=== PATIENT | male | born 1970 | race African-American/Black ===

== ENCOUNTER 2016-05-21 01:17 | Observation (INO) | payer SELFPAY ==
[~2016-05-21] VITALS: Ht 172.7 cm; Wt 77.0 kg
[~2016-05-21 01:17] MED LIST: GLUCTAB PO; HYDR-3534 PO; POTA25TA5 PO; ZOFR4TAB3 SL
[2016-05-21 01:18] VITALS: BP 158/91; PULSE 96; RESP 16; TEMP 98; O2SAT 98
[2016-05-21 02:27] LABS: BASOPHIL % 0.2 % (0.0-2.0); EOSINOPHIL # 0.1 TH/MM3 (0-0.4); HEMATOCRIT 39.6 % (39.0-51.0); HEMO FLAGS DIFF FINAL; LYMPH % 48.9 % (9.0-44.0); LYMPHOCYTE # 3.5 TH/MM3 (1.0-4.8); MEAN CELL VOLUME 87.4 FL (80.0-100.0); MEAN CORPUSCULAR HEMOGLOBIN 30.5 PG (27.0-34.0); MEAN CORPUSCULAR HGB CONC 34.8 % (32.0-36.0); MONO % 7.7 % (0.0-8.0); NEUT % 42.2 % (16.0-70.0); PLATELET COUNT 164 TH/MM3 (150-450); RED BLOOD COUNT 4.53 MIL/MM3 (4.50-5.90); WHITE BLOOD COUNT 7.1 TH/MM3 (4.0-11.0)
[2016-05-21 02:57] LABS: ANION GAP 9 MEQ/L (5-15); BICARBONATE 26.9 MEQ/L (21.0-32.0); BLOOD UREA NITROGEN 14 MG/DL (7-18); CHLORIDE 101 MEQ/L (98-107); GLOMERULAR FILTRATION RATE 129 ML/MIN (>89); POTASSIUM 3.7 MEQ/L (3.5-5.1); SODIUM (NA) 137 MEQ/L (136-145)
[2016-05-21 03:01] LABS: CREATINE KINASE 135 U/L (39-308)
[2016-05-21 03:14] LABS: CKMB 1.2 NG/ML (0.5-3.6)
[2016-05-21] MEDS ORDERED: ACETAMINOPHEN/HYDROcodone 325 MG/5 MG TAB PO ONE (07:00)
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
[2016-05-21 07:30] VITALS: BP 129/89; PULSE 61; RESP 15; O2SAT 99
[2016-05-21] MEDS ORDERED: ALPRAZolam 0.25 MG TAB PO PRN (07:30)
[2016-05-21] MEDS ORDERED: PENICILLIN V POTASSIUM 500 MG TAB PO ONE (07:30)
[2016-05-21] MEDS ORDERED: SODIUM CHLORIDE 0.9% FLUSH 5 ML FLUSH IVF PRN (07:30)
[2016-05-21] MEDS ORDERED: TEMAZEPAM 15 MG CAP PO PRN (07:30)
[2016-05-21] MEDS ORDERED: ONDANSETRON HCL 4 MG/2 ML VIAL IV PRN (07:30)
[2016-05-21] MEDS ORDERED: MORPHINE SULFATE 4 MG/ML INJ IV PRN (07:30)
[2016-05-21] MEDS ORDERED: ACETAMINOPHEN/HYDROcodone 325 MG/7.5 MG TAB PO PRN (07:30)
[2016-05-21] MEDS ORDERED: NITROGLYCERIN 0.4 MG SL 25 TABS/BTL SL PRN (07:30)
--- NOTE | 2016-05-21 07:30 | RADRPT ---
EXAM DATE/TIME: 05/21/2016 06:57 [facility] COMPARISON: CHEST SINGLE AP, April 13, 2015, 4:37. INDICATIONS : Chest pains for three days. MEDICAL HISTORY : None. SURGICAL HISTORY : None. ENCOUNTER: Initial ACUITY: 3 days PAIN SCORE: 8/10 LOCATION: chest area under left shoulder. FINDINGS: A single view of the chest demonstrates the lungs to be symmetrically aerated without evidence of mas s, infiltrate or effusion. The cardiomediastinal contours are unremarkable. Osseous structures are intact. There is a subtle interface overlying the left lung apex which I believe is associated with t he third rib not pneumothorax CONCLUSION: Normal examination. Vick Gambino MD on May 21, 2016 at 7:28 Board Certified Radiologist. This report was verified electronically.
[2016-05-21 07:32] VITALS: O2SAT 98
[2016-05-21] MEDS ORDERED: PENI500T PO (07:40)
[2016-05-21] MEDS ORDERED: HYDR-3534 PO (07:40)
[2016-05-21] MEDS ORDERED: ASPIRIN 325 MG TAB PO SCH (09:00)
[2016-05-21] MEDS ORDERED: SODIUM CHLORIDE 0.9% FLUSH 5 ML FLUSH IVF SCH (09:00)
[2016-05-21 09:23] LABS: CREATINE KINASE 114 U/L (39-308)
[2016-05-21] MEDS ORDERED: LISI2.5T3 PO (09:33)
[2016-05-21] MEDS ORDERED: GLUCTAB PO (09:35)
[2016-05-21 09:43] LABS: CKMB 0.8 NG/ML (0.5-3.6)
--- NOTE | 2016-05-21 12:00 | HHI.HP ---
[facility] Primary Care Physician He Willard MD Chief Complaint Chest pain History of Present Illness This is a 45-year-old male that presents to the emergency department complaining of waking up about every day with a left-sided chest discomfort for the last 2 weeks. It'll last 1 or 2 minutes and then resolved. It does not occur with activity. He also states that when he wakes up his left arm feels numb and tingly. That will last for 5 seconds when he wakes up. Denies other types of discomfort. Denies weakness in extremities. Denies shortness of breath, nausea, or diaphoresis. Cannot recall prior cardiac workup. He states that he has been diabetic for some time. He also states that he has had hypertension in the past but is currently not taking medication for that. He denies knowledge of hyperlipidemia but cannot recall the last time it was checked. Patient also complaining of dental pain. He states that when he presses his tongue against an area in his palate at times pus will be expressed. Review of Systems General: Patient denies fevers, chills recent, and recent travel. HEENT: Patient denies headache, sore throat, difficulty swallowing. He believes he has a dental abscess. Cardiovascular: Has the chest discomfort as mentioned above. Denies sensation of heart beating rapidly or irregularly. No syncope. Respiratory: Denies shortness of breath or inspirational chest discomfort. Denies coughing wheezing or hemoptysis. GI: Patient denies nausea, vomiting, diarrhea, abdominal pain, bloody stools. Musculoskeletal: Patient denies joint pain or edema. Denies calf pain or edema. Neurovascular: Patient denies numbness, tingling, weakness in extremities. Denies headache. Endocrine: Denies polyuria and polydipsia. Hematologic: Denies easy bruising. Skin: Denies rash or itching. Past Family Social History Allergies: Coded Allergies: No Known Allergies (Verified , 05/21/16) Past Medical History Diabetes and hypertension. Does not know his lipid status. Denies knowledge of CAD. Past Surgical History Noncontributory. Reported Medications Metformin Family History Denies family history of CAD. Social History Nonsmoker. Denies alcohol or illicit drugs. Physical Exam Vital Signs Vital Signs Date Time Temp Pulse Resp B/P Pulse Ox O2 Delivery O2 Flow Rate FiO2 05/21/16 08:24 16 05/21/16 07:32 98 21 05/21/16 07:30 61 15 129/89 99 Room Air 05/21/16 06:14 78 16 98 Room Air 05/21/16 01:18 98.0 96 16 158/91 98 Room Air Laboratory Laboratory Tests Test 05/21/16 05/21/16 02:10 08:24 White Blood Count 7.1 Red Blood Count 4.53 Hemoglobin 13.8 Hematocrit 39.6 Mean Corpuscular Volume 87.4 Mean Corpuscular Hemoglobin 30.5 Mean Corpuscular Hemoglobin 34.8 Concent Red Cell Distribution Width 13.0 Platelet Count 164 Mean Platelet Volume 10.4 Neutrophils (%) (Auto) 42.2 Lymphocytes (%) (Auto) 48.9 Monocytes (%) (Auto) 7.7 Eosinophils (%) (Auto) 1.0 Basophils (%) (Auto) 0.2 Neutrophils # (Auto) 3.0 Lymphocytes # (Auto) 3.5 Monocytes # (Auto) 0.5 Eosinophils # (Auto) 0.1 Basophils # (Auto) 0.0 CBC Comment DIFF FINAL Differential Comment Sodium Level 137 Potassium Level 3.7 Chloride Level 101 Carbon Dioxide Level 26.9 Anion Gap 9 Blood Urea Nitrogen 14 Creatinine 0.79 Estimat Glomerular Filtration 129 Rate Random Glucose 239 Calcium Level 9.0 Total Creatine Kinase 135 114 Creatine Kinase MB 1.2 0.8 Troponin I LESS THAN 0.02 LESS THAN 0.02 Result Diagram: 05/21/1620905/21/16209 Imaging GENERAL: This is a well-nourished, well-developed patient, in no apparent distress. Patient speaks in clear complete sentences. Patient is pleasant. HEENT: Head is atraumatic and normocephalic. Neck is supple without lymphadenopathy and trachea is midline. No JVD or carotid bruits. CARDIOVASCULAR: Regular rate and rhythm without murmurs, gallops, or rubs. RESPIRATORY: Clear to auscultation. Breath sounds equal bilaterally. No wheezes , rales, or rhonchi. Chest wall is nontender. No use of accessory muscles. GASTROINTESTINAL: Abdomen is nontender, nondistended. Abdomen soft. No obvious pulsatile mass or bruit. No CVA tenderness. Strong femoral pulses bilaterally. Normal bowel sounds in all quadrants. MUSCULOSKELETAL: Patient is moving upper and lower extremities freely. No calf tenderness or edema, no Homans sign. Strong pulses in upper and lower extremities. NEUROLOGICAL: Patient is alert and oriented. Cranial nerves 2-12 are grossly intact. No focal deficits and speech is clear. Flat Lock Operator strength equal bilaterally. SKIN: No rash and turgor is normal. Course EKGs have sinus rhythm with nonspecific inferior T-wave changes. Assessment and Plan Assessment and Plan 1) Atypica l chest pain: Patient had first 2 sets of EKGs and cardiac enzymes and has ruled out. He was seen by Dr. Josef Diamond of cardiology and the chest pain center and will undergo a Lexiscan. If the stress test were to be nonischemic with then be discharged home with instructions follow-up with his primary care physician and with a dentist. 2) Diabetes: Continue current medications. Follow diabetic diet. He will be on sliding scale insulin coverage while in the chest pain center. He'll be placed on lisinopril and a statin. 3) hypertension: Will start lisinopril. Carlos Brown May 21, 2016 12:00
[2016-05-21] MEDS ORDERED: REGADENOSON INJ 0.4 MG/5 ML SYR ONE (12:20)
[2016-05-21 13:18] VITALS: BP 123/74; PULSE 95; RESP 19; TEMP 98; O2SAT 97
--- NOTE | 2016-05-21 14:31 | RADRPT ---
EXAM DATE/TIME: 05/21/2016 11:58 [facility] COMPARISON: No previous studies available for comparison. INDICATIONS: Left sided chest pain for 2 days. Angina. DOSE: 25.9 mCi Tc99m Myoview at stress. 8.1 mCi Tc99m Myoview at rest. 0.4 mg Lexiscan STRESS SYMPTOMS: Shortness of breath. EJECTION FRACTION: 67% MEDICAL HISTORY: Hypertension. Diabetes mellitus type 2. SURGICAL HISTORY: Abdomen surgery. ENCOUNTER: Initial ACUITY: 2 days PAIN SCALE: 6/10 LOCATION: Left chest TECHNIQUE: The patient underwent pharmacologic stress with infusion of prescribed dose. Continuous ECG tracing was monitored during stress. Gated SPECT imaging was performed after stress and conventional SPECT i maging was performed at rest. The examination was performed on a SPECT/CT scanner, both attenuation and non-corrected datasets were reviewed. FINDINGS: The gated Cine loop images demonstrate no focal wall motion abnormality. The left ventricular ejecti on fraction is calculated at 67%. The cardiac SPECT stress and rest images demonstrate no fixed or reversible defects to suggest infarc t or ischemic. CONCLUSION: No infarct, ischemia or focal wall motion abnormality. Left ventricular ejection fraction is calcula yann at 67%. RISK CATEGORY: Low risk (less than 1% annual mortality rate). Ladarius Garnett MD on May 21, 2016 at 14:02 Board Certified Radiologist. This report was verified electronically.
[2016-05-21] MEDS ORDERED: PRAV40TA2 PO (14:50)
[2016-05-21] MEDS ORDERED: LISI10TA3 PO (14:50)
--- NOTE | 2016-05-21 14:50 | HHI.DCPOC ---
Discharge Care Plan Diagnosis: (1) Chest pain (2) DM (diabetes mellitus) (3) Hypertension Goals to Promote Your Health * To prevent worsening of your condition and complications * To maintain your health at the optimal level Directions to Meet Your Goals Take your medications as prescribed Follow your dietary instruction Follow activity as directed Keep your appointments as scheduled Take your immunizations and boosters as scheduled If your symptoms worsen call your PCP, if no PCP go to Urgent Care Center or Emergency Room Smoking is Dangerous to Your Health. Avoid second hand smoke Call the 24-hour hour crisis hotline for domestic abuse at Carlos Brown May 21, 2016 14:50
[2016-05-21 15:10] VITALS: PULSE 102
--- NOTE | 2016-05-21 16:02 | EKG ---
Date Performed: 05/21/2016 Time Performed: 01:58:29 PTAGE: 45 years EKG: Sinus rhythm MINIMAL VOLTAGE CRITERIA FOR LVH, CONSIDER NORMAL VARIANT NONSPECIFIC T-WAVE ABNORMALITY BORDERLINE ECG PREVIOUS TRACING : 04/13/2015 18.02 Since previous tracing, no significant change noted DOCTOR: Josef Diamond Interpretating Date/Time 05/21/2016 16:00:38
--- NOTE | 2016-05-21 16:05 | EKG ---
Date Performed: 05/21/2016 Time Performed: 07:30:47 PTAGE: 45 years EKG: Sinus rhythm NONSPECIFIC T-WAVE ABNORMALITY BORDERLINE ECG PREVIOUS TRACING : 05/21/2016 01.58 Since previous tracing, no significant change noted DOCTOR: Josef Diamond Interpretating Date/Time 05/21/2016 16:03:42
--- NOTE | 2016-05-21 16:06 | TR ---
Date Performed: 05/21/2016 Time Performed: 12:29:01 DOCTOR: Josef Diamond DRUG LIST: CLINICAL HISTORY: CHEST PAIN REASON FOR TEST: CHEST PAIN REASON FOR ENDING: OBSERVATION: CONCLUSION: Lexiscan stress test was performed under standard four minute protocol. Radionuclid e was injected one minute prior to ending the test. No electrocardiographic abormalities were present to suggest ischemia. Nuclear imaging and interpretation are pending. COMMENTS:
== END 2016-05-21 18:00 | disposition home or self-care (01) ==
LOC: NEPC 01:17 → NEDA 07:21 → NEPHCDU 12:20 → HCIS 13:26 → NEPHCDU 13:29
PROVIDERS: ADMIT Internal Medicine Cardiovascular Disease; ATTEND Internal Medicine Cardiovascular Disease
DX: R07.89 Other chest pain (principal); E11.9 Type 2 diabetes mellitus without complications; I10 Essential (primary) hypertension; K02.9 Dental caries, unspecified; K04.7 Periapical abscess without sinus; R94.31 Abnormal electrocardiogram [ECG] [EKG]
CPT/HCPCS: 71010; 78452; 80048; 82550; 82552; 84484; 85025; 93005; 93017; 99285; A9502; G0378; J2785

== ENCOUNTER 2016-06-14 03:58 | Emergency (ER) | payer SELFPAY ==
[~2016-06-14] VITALS: Ht 175.3 cm; Wt 78.0 kg
[~2016-06-14 03:58] MED LIST changes: +LISI10TA3 PO; +PENI500T PO; -POTA25TA5 PO; +PRAV40TA2 PO; -ZOFR4TAB3 SL
[2016-06-14 04:02] VITALS: BP 178/100; PULSE 83; RESP 17; TEMP 98.9; O2SAT 98
[2016-06-14 05:30] LABS: AUTOMATED NEUTROPHIL # 9.4 TH/MM3 (1.8-7.7); BASOPHIL % 0.2 % (0.0-2.0); EOSINOPHIL % 0.3 % (0.0-4.0); HEMATOCRIT 37.8 % (39.0-51.0); HEMO FLAGS DIFF FINAL; LYMPHOCYTE # 2.6 TH/MM3 (1.0-4.8); MEAN CELL VOLUME 87.8 FL (80.0-100.0); MEAN CORPUSCULAR HEMOGLOBIN 30.5 PG (27.0-34.0); MEAN CORPUSCULAR HGB CONC 34.7 % (32.0-36.0); MONO % 7.6 % (0.0-8.0); NEUT % 71.9 % (16.0-70.0); PLATELET COUNT 200 TH/MM3 (150-450); RED BLOOD COUNT 4.31 MIL/MM3 (4.50-5.90); RED CELL DISTRIBUTION WIDTH 13.1 % (11.6-17.2); WHITE BLOOD COUNT 13.1 TH/MM3 (4.0-11.0)
[2016-06-14 05:43] LABS: ALT (GPT) 20 U/L (12-78); ANION GAP 8 MEQ/L (5-15); AST (GOT) 12 U/L (15-37); BICARBONATE 27.9 MEQ/L (21.0-32.0); BLOOD UREA NITROGEN 12 MG/DL (7-18); CHLORIDE 102 MEQ/L (98-107); GLOMERULAR FILTRATION RATE 118 ML/MIN (>89); POTASSIUM 3.7 MEQ/L (3.5-5.1); SODIUM (NA) 138 MEQ/L (136-145)
[2016-06-14 05:45] LABS: ALKALINE PHOSPHATASE 131 U/L (45-117); TOTAL BILIRUBIN ADULT 0.3 MG/DL (0.2-1.0)
[2016-06-14] MEDS ORDERED: INSULIN HUMAN REGULAR 1,000 UNITS/10 ML VIAL SQ ONE (06:00)
[2016-06-14] MEDS ORDERED: MORPHINE SULFATE 4 MG/ML INJ IV PUSH ONE (06:00)
[2016-06-14] MEDS ORDERED: SODIUM CHLOR 0.9% 1000 ML INJ 1,000 ML IV ONE (06:00)
[2016-06-14] MEDS ORDERED: LIDOCAINE HCL 2% 50 ML VIAL INFIL ONE (06:15)
[2016-06-14] MEDS ORDERED: PENI500T PO (07:50)
[2016-06-14] MEDS ORDERED: METF500T4 PO (07:50)
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
[2016-06-14 08:02] VITALS: BP 154/89
== END 2016-06-14 08:03 | disposition home or self-care (01) ==
LOC: NEPC 03:58
DX: K12.2 Cellulitis and abscess of mouth (principal); I10 Essential (primary) hypertension; E78.00 Pure hypercholesterolemia, unspecified; E11.9 Type 2 diabetes mellitus without complications; Z79.4 Long term (current) use of insulin
CPT/HCPCS: 42000; 80053; 85025; 96361; 96372; 96374; 99283; J1815; J2270; J7030

== ENCOUNTER 2016-10-21 05:30 | Emergency (ER) | payer SELFPAY ==
[~2016-10-21] VITALS: Ht 175.3 cm; Wt 80.0 kg
[~2016-10-21 05:30] MED LIST changes: +METF500T4 PO
[2016-10-21 05:32] VITALS: BP 163/90; PULSE 115; RESP 16; TEMP 98.7; O2SAT 98
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
[2016-10-21] MEDS ORDERED: PROPARACAINE HCL 0.5% OPHT SOLN 15 ML BTL LEFT EYE ONE (06:45)
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
[2016-10-21] MEDS ORDERED: TOBR0.3S LEFT EYE (06:54)
[2016-10-21] MEDS ORDERED: DIPHTH/TETANUS/ACEL PERTUSSIS (BOOSTER) 0.5 ML VIAL/PFS IM ONE (07:00)
== END 2016-10-21 08:19 | disposition home or self-care (01) ==
LOC: NEPC 05:30
DX: S05.02XA Injury of conjunctiva and corneal abrasion without foreign body, left eye, initial encounter (principal); S00.83XA Contusion of other part of head, initial encounter; I10 Essential (primary) hypertension; E11.9 Type 2 diabetes mellitus without complications; E78.5 Hyperlipidemia, unspecified; E78.00 Pure hypercholesterolemia, unspecified; Y04.0XXA Assault by unarmed brawl or fight, initial encounter; Y93.89 Activity, other specified; Y92.007 Garden or yard of unspecified non-institutional (private) residence as the place of occurrence of the external cause
CPT/HCPCS: 70450; 70486; 72125; 90471; 90715

== ENCOUNTER 2017-07-10 00:17 | Emergency (ER) | payer OTHER ==
[~2017-07-10] VITALS: Ht 177.8 cm; Wt 783.0 kg
[~2017-07-10 00:17] MED LIST changes: -METF500T4 PO; -PENI500T PO; +TOBR0.3S LEFT EYE
[2017-07-10 00:55] VITALS: BP 144/87; PULSE 84; RESP 16; TEMP 98.4; O2SAT 100
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
== END 2017-07-10 01:40 | disposition home or self-care (01) ==
LOC: NEPD 00:17
DX: K13.70 Unspecified lesions of oral mucosa (principal); E11.9 Type 2 diabetes mellitus without complications; E78.00 Pure hypercholesterolemia, unspecified; I10 Essential (primary) hypertension; Z79.84 Long term (current) use of oral hypoglycemic drugs
CPT/HCPCS: 99281

== ENCOUNTER 2017-09-20 20:43 | Emergency (ER) | payer OTHER ==
[~2017-09-20] VITALS: Ht 177.8 cm; Wt 80.0 kg
[2017-09-20 20:52] VITALS: BP 151/88; PULSE 79; RESP 18; TEMP 98.1; O2SAT 100
[2017-09-20] MEDS ORDERED: BACT800T5 PO (21:02)
[2017-09-20] MEDS ORDERED: CLIN300C5 PO (21:02)
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
[2017-09-20] MEDS ORDERED: CLINDAMYCIN PHOS 600 MG/4 ML VIAL IM ONE (21:15)
[2017-09-20] MEDS ORDERED: SULFAMETHOXAZOLE-TRIMETHOPRIM DS 800-160 MG TAB PO ONE (21:15)
== END 2017-09-20 21:20 | disposition home or self-care (01) ==
LOC: NEPD 20:43
DX: L03.211 Cellulitis of face (principal); B95.62 Methicillin resistant Staphylococcus aureus infection as the cause of diseases classified elsewhere; I10 Essential (primary) hypertension; E78.00 Pure hypercholesterolemia, unspecified; E11.9 Type 2 diabetes mellitus without complications; Z79.84 Long term (current) use of oral hypoglycemic drugs
CPT/HCPCS: 86403; 87070; 87186; 87205; 99283

== ENCOUNTER 2017-09-28 19:00 | Emergency (ER) | payer OTHER ==
[~2017-09-28] VITALS: Ht 177.8 cm; Wt 79.5 kg
[~2017-09-28 19:00] MED LIST changes: +BACT800T5 PO; +CLIN300C5 PO
[2017-09-28 19:06] VITALS: BP 157/82; PULSE 100; RESP 18; TEMP 99.5; O2SAT 99
[2017-09-28] MEDS ORDERED: SODIUM CHLOR 0.9% 1000 ML INJ 1,000 ML IV ONE (19:20)
[2017-09-28] MEDS ORDERED: SODIUM CHLORIDE 0.9% FLUSH 10 ML FLUSH IVF PRN (19:30)
[2017-09-28 20:09] LABS: AUTOMATED NEUTROPHIL # 2.7 TH/MM3 (1.8-7.7); BASOPHIL % 0.4 % (0.0-2.0); EOSINOPHIL # 0.1 TH/MM3 (0-0.4); EOSINOPHIL % 1.6 % (0.0-4.0); HEMATOCRIT 33.6 % (39.0-51.0); HEMOGLOBIN 11.2 GM/DL (13.0-17.0); LYMPH % 52.7 % (9.0-44.0); LYMPHOCYTE # 3.8 TH/MM3 (1.0-4.8); MEAN CELL VOLUME 86.4 FL (80.0-100.0); MEAN CORPUSCULAR HEMOGLOBIN 28.7 PG (27.0-34.0); MEAN CORPUSCULAR HGB CONC 33.2 % (32.0-36.0); MEAN PLATELET VOLUME 10.2 FL (7.0-11.0); MONO % 7.6 % (0.0-8.0); MONOCYTE # 0.5 TH/MM3 (0-0.9); NEUT % 37.7 % (16.0-70.0); PLATELET COUNT 266 TH/MM3 (150-450); RED BLOOD COUNT 3.89 MIL/MM3 (4.50-5.90); RED CELL DISTRIBUTION WIDTH 12.5 % (11.6-17.2); WHITE BLOOD COUNT 7.2 TH/MM3 (4.0-11.0)
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
[2017-09-28 20:20] LABS: PROTHROMBIN TIME - PATIENT 9.7 SEC (9.8-11.6)
[2017-09-28 20:40] LABS: ALT (GPT) 19 U/L (12-78)
[2017-09-28 20:46] LABS: ALBUMIN 3.5 GM/DL (3.4-5.0); ALKALINE PHOSPHATASE 104 U/L (45-117); AST (GOT) 22 U/L (15-37); BLOOD UREA NITROGEN 12 MG/DL (7-18); CALCIUM 8.5 MG/DL (8.5-10.1); CHLORIDE 107 MEQ/L (98-107); GLOMERULAR FILTRATION RATE 126 ML/MIN (>89); GLUCOSE,RANDOM 147 MG/DL (74-106); SODIUM (NA) 140 MEQ/L (136-145); TOTAL BILIRUBIN ADULT 0.2 MG/DL (0.2-1.0); TOTAL PROTEIN 7.7 GM/DL (6.4-8.2); TROPONIN I LESS THAN 0.02 NG/ML (0.02-0.05)
[2017-09-28] MEDS ORDERED: LISI10TA3 PO (21:36)
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
[2017-09-28 21:50] VITALS: BP 146/82
--- NOTE | 2017-09-29 17:17 | EKG ---
Date Performed: 09/28/2017 Time Performed: 20:18:15 PTAGE: 46 years EKG: Sinus rhythm NORMAL ECG PREVIOUS TRACING : 05/21/2016 07.30 Since the previous tracing, no significant change noted DOCTOR: Zoie Tellez Interpretating Date/Time 09/29/2017 17:16:08
== END 2017-09-28 21:55 | disposition home or self-care (01) ==
LOC: NEPC 19:00
DX: R42 Dizziness and giddiness (principal); R00.2 Palpitations; I10 Essential (primary) hypertension; E78.00 Pure hypercholesterolemia, unspecified; E11.9 Type 2 diabetes mellitus without complications; Z79.2 Long term (current) use of antibiotics; Z79.84 Long term (current) use of oral hypoglycemic drugs
CPT/HCPCS: 71045; 80053; 82550; 82552; 84484; 85025; 85610; 85730; 93005; 96360; 99285; J7030